=== PATIENT | female | born 1965 | race Caucasian/White ===

== ENCOUNTER 2020-10-22 14:00 | Observation (INO) ==
[2020-10-22] MEDS ORDERED: ACETAMINOPHEN 1000 MG/100 ML IV IV STA (15:30)
[2020-10-22] MEDS ORDERED: KETOROLAC TROMETHAMINE 15 MG/ML VIAL IV STA (15:30)
[2020-10-22] MEDS ORDERED: ONDANSETRON INJ 2 MG/ML 2 ML VIAL IV STA (15:30)
[2020-10-22] MEDS ORDERED: SODIUM CHLORIDE 0.9% 1000ML 1,000 ML IV STA (15:30)
--- NOTE | 2020-10-22 15:34 | Emergency Department Note ---
Impression & Plan Diffuse abdominal pain, Colitis, Leukocytosis, Diarrhea ED Provider Note NAME: CARLI HUDSON AGE: 55 SEX: F : 1965 ARRIVES VIA: Walk-In INFORMANT: [Patient] ED PROVIDER(S): [Rahul Silva MD] CHIEF COMPLAINT: Dehydration HISTORY OF PRESENT ILLNESS: The patient is a 55-year-old female who presents to the ER with 5 days of symptoms. She has had some abdominal cramping, some abdominal tightness that has been rated as moderate in severity. She had some diarrhea and nausea. She has had dry heaves but no vomiting. The patient admits to some slight blood in her stool but states, this is common because she has ulcerative colitis. There has been no black stool. Patient was tested twice this past week for Covid, she was negative. The patient did see urgent care and was given Zofran. Her symptoms are continuing although the Zofran did help the nausea a bit. She presents for evaluation. No respiratory symptoms, no shortness of breath or cough. She has had no urinary complaints. No bad food eaten, no sick contacts. REVIEW OF SYSTEMS: See HPI for pertinent positives and negatives. A total of ten systems were reviewed and were otherwise negative. PMHx/PSHx: See Below SOCIAL HISTORY: See Below. PHYSICAL EXAM: GENERAL: Patient is in no acute distress. HEENT: No acute trauma, normocephalic atraumatic, mucous membranes moist, no nasal congestion, no scleral icterus. NECK: No stridor, no adenopathy, no meningismus, trachea is midline. LUNGS: Clear to auscultation bilaterally, no wheeze, no rhonchi, breath sounds equal. HEART: 2/6 systolic murmur heard best at the right sternal border. Regular rate and rhythm. ABDOMEN: Soft, mildly diffusely tender, bowel sounds positive, no hernias, no peritonitis. EXTREMITIES: No cyanosis or edema, full range of motion of all the joints without pain or difficulty, no signs for acute trauma. NEUROLOGIC: Oriented x 3, no acute motor or sensory deficits, no focal weakness. SKIN: No rash, no jaundice, no diaphoresis. DIFFERENTIAL DIAGNOSIS: Appendicitis, ovarian cyst, diverticulitis, colitis, COVID-19, UTI, obstruction, mesenteric ischemia, aortic pathology, inflammatory bowel disease, renal colic, PUD, pancreatitis, biliary pathology, hernia, volvulus, constipation, as well as other pathologies. EMERGENCY DEPARTMENT COURSE/PROCEDURES: MEDICAL DECISION MAKING: There is a moderate leukocytosis which would be consistent with infection or possibly her pain. There is a normal hemoglobin. Platelet count slightly elevated. Renal panel testing shows a low potassium and low sodium. No kidney failure. No concerning liver enzyme elevation. No evidence for pancreatitis. Urinalysis shows possible infection. C. difficile testing was negative. Stool cultures are pending. Covid testing returned negative. Abdominal and pelvis CT shows a diffuse colitis. Chest film does not show pneumonia or free air. The patient presents with a low-grade fever, diffuse abdominal pain. She has a known history of ulcerative colitis. She received IV saline for hydration. She was given IV potassium, IV Zofran, IV Solu-Medrol and IV Toradol. She received IV Tylenol. Patient does seem more comfortable. I discussed her case with GI. H ospitalization is warranted. Since the stool C. difficile test was negative, steroids were indicated. I spoke with the patient, I talked with the block and case maker. The on-call hospitalist was consulted. The reason for the colitis is unclear. Foodborne or viral illness is certainly a consideration, we await the stool culture results. Past Med/Surg History Medical History Ulcerative colitis Social History Smoking Status: Never smoker Feels Safe at Home: Yes Allergies Allergies Allergy/AdvReac Type Severity Reaction Status Date / Time animal dander Allergy Intermediate SOB WHEEZY Unverified 10/22/20 16:25 Home Meds Home Medications Medication Instructions Recorded Confirmed ondansetron 4 mg disintegrating 4 mg PO Q8H PRN 10/22/20 10/22/20 tablet Results & Data (ED) Vital Signs Vital Signs - 24 hr 10/22/20 14:08 10/22/20 16:01 10/22/20 17:32 Temperature 37.8 C H Temperature Source Temporal Artery Scan Pulse Rate 106 H 78 Pulse Rate [Finger] 86 Pulse Rate from SpO2 Sensor 78 Pulse Rhythm [Finger] Regular Pulse Strength [Finger] Normal Respiratory Rate 18 18 18 Respiratory Effort / Characteristics Spontaneous Respiratory Depth Normal Respiratory Pattern Regular Blood Pressure 109/68 99/61 L Blood Pressure [Right Arm] 104/62 Blood Pressure Mean 81 73 Blood Pressure Mean [Right Arm] 76 Blood Pressure Position [Right Arm] Semi-fowlers Pulse Oximetry 94 97 95 Oxygen Delivery Method Room Air Room Air Sepsis Recent Fever Within 48 Hours Yes Sepsis New/Unexplained Change in Mental Status N/A Sepsis Action Taken by Nursing No Action Required 10/22/20 18:00 10/22/20 19:05 10/22/20 20:00 Temperature 37.2 C Temperature Source Oral Pulse Rate 80 Pulse Rate [Finger] 88 Pulse Rate from SpO2 Sensor 80 Pulse Rhythm [Finger] Regular Pulse Strength [Finger] Normal Respiratory Rate 16 19 Respiratory Effort / Characteristics Spontaneous Non-Labored Spontaneous Respiratory Depth Normal Normal Respiratory Pattern Regular Blood Pressure 103/67 Blood Pressure [Right Arm] 99/61 L Blood Pressure Mean 79 Blood Pressure Mean [Right Arm] 73 Blood Pressure Position [Right Arm] Semi-fowlers Pulse Oximetry 99 99 Oxygen Delivery Method Room Air Sepsis Recent Fever Within 48 Hours Sepsis New/Unexplained Change in Mental Status Sepsis Action Taken by Nursing 10/22/20 21:17 Temperature Temperature Source Pulse Rate 90 Pulse Rate [Finger] Pulse Rate from SpO2 Sensor Pulse Rhythm [Finger] Pulse Strength [Finger] Respiratory Rate 17 Respiratory Effort / Characteristics Respiratory Depth Respiratory Pattern Blood Pressure 101/57 L Blood Pressure [Right Arm] Blood Pressure Mean 71 Blood Pressure Mean [Right Arm] Blood Pressure Position [Right Arm] Pulse Oximetry Oxygen Delivery Method Sepsis Recent Fever Within 48 Hours Sepsis New/Unexplained Change in Mental Status Sepsis Action Taken by Detention Medications Current Medication List: was personally reviewed by me Laboratory Data Attestation: I reviewed the patient's lab results. Result diagrams: 10/22/20 15:42 10/22/20 15:42 Lab Results 10/22/20 10/22/20 10/22/20 Range/Units 15:42 15:42 16:12 WBC 14.69 H (4.8-10.8) K/uL RBC 4.08 L (4.2-5.4) M/uL Hgb 12.4 (12.0-16.0) g/dL Hct 37.2 (37-47) % MCV 91.2 (80-100) fL MCH 30.4 (25-34) pg MCHC 33.3 (32-36) g/dL RDW Std Deviation 43.3 (36.4-46.3) fL RDW Coeff of Young 12.9 (11.5-14.5) % Plt Count 406 H (130-400) K/uL MPV 9.4 (7.4-10.4) fL Immature Gran % (Auto) 0.7 % Neut % (Auto) 73.7 % Lymph % (Auto) 9.5 % Perry % (Auto) 14.5 % Eos % (Auto) 1.4 % Baso % (Auto) 0.2 % Neut # (Auto) 10.81 H (1.4-6.5) K/uL Lymph # (Auto) 1.40 (1.2-3.4) K/uL Perry # (Auto) 2.13 H (0.11-0.59) K/uL Eos # (Auto) 0.21 (0-0.5) K/uL Baso # (Auto) 0.03 (0-0.2) K/uL Immature Gran # (Auto) 0.11 H (0.00-0.02) K/uL Sodium 131 L (136-145) mmol/L Potassium 3.3 L (3.5-5.1) mmol/L Chloride 97 L (98-107) mmol/L Carbon Dioxide 29 (21-32) mmol/L Anion Gap 5.0 (3-11) BUN 6 L (7-18) mg/dl Creatinine 0.83 (0.6-1.2) mg/dl Est Cr Clr Drug Dosing 65.1 ml/min Est GFR ( Amer) 92.7 ml/min Est GFR (Non-Af Amer) 79.9 ml/min BUN/Creatinine Ratio 7.3 L (10-20) Glucose 124 H (70-99) mg/dl Calcium 8.6 (8.5-10.1) mg/dl Total Bilirubin 0.6 (0.2-1) mg/dl AST 10 L (15-37) U/L ALT 13 (12-78) U/L Alkaline Phosphatase 103 (45-117) U/L Total Protein 7.1 (6.4-8.2) gm/dl Albumin 2.6 L (3.4-5.0) gm/dl Globulin 4.5 H (2.5-4.0) gm/dl Albumin/Globulin Ratio 0.6 L (0.9-2) Lipase 261 (73-393) U/L Urine Color Urine Appearance (Clear) Urine pH (4.5-7.5) Ur Specific Heidrick (1.000-1.030) Urine Protein (Negative) Urine Glucose (UA) (Negative) Urine Ketones (Negative) Urine Blood (Negative) Urine Nitrite (Negative) Urine Bilirubin (Negative) Urine Urobilinogen (Negative) Ur Leukocyte Esterase (Negative) Urine WBC (Auto) (0-5) /hpf Urine RBC (Auto) (0-4) /hpf U Hyaline Cast (Auto) U Epithel Cells (Auto) (0-5) /lpf Urine Bacteria (Auto) (Negative) Stl C. diff Tox B Gene (Neg) COVID-19 Eval Order Covid19 at [facility] SARS-CoV-2 (PCR) (Negative) 10/22/20 10/22/20 10/22/20 Range/Units 16:12 19:02 19:02 WBC (4.8-10.8) K/uL RBC (4.2-5.4) M/uL Hgb (12.0-16.0) g/dL Hct (37-47) % MCV (80-100) fL MCH (25-34) pg MCHC (32-36) g/dL RDW Std Deviation (36.4-46.3) fL RDW Coeff of Young (11.5-14.5) % Plt Count (130-400) K/uL MPV (7.4-10.4) fL Immature Gran % (Auto) % Neut % (Auto) % Lymph % (Auto) % Perry % (Auto) % Eos % (Auto) % Baso % (Auto) % Neut # (Auto) (1.4-6.5) K/uL Lymph # (Auto) (1.2-3.4) K/uL Perry # (Auto) (0.11-0.59) K/uL Eos # (Auto) (0-0.5) K/uL Baso # (Auto) (0-0.2) K/uL Immature Gran # (Auto) (0.00-0.02) K/uL Sodium (136-145) mmol/L Potassium (3.5-5.1) mmol/L Chloride (98-107) mmol/L Carbon Dioxide (21-32) mmol/L Anion Gap (3-11) BUN (7-18) mg/dl Creatinine (0.6-1.2) mg/dl Est Cr Clr Drug Dosing ml/min Est GFR ( Amer) ml/min Est GFR (Non-Af Amer) ml/min BUN/Creatinine Ratio (10-20) Glucose (70-99) mg/dl Calcium (8.5-10.1) mg/dl Total Bilirubin (0.2-1) mg/dl AST (15-37) U/L ALT (12-78) U/L Alkaline Phosphatase (45-117) U/L Total Protein (6.4-8.2) gm/dl Albumin (3.4-5.0) gm/dl Globulin (2.5-4.0) gm/dl Albumin/Globulin Ratio (0.9-2) Lipase (73-393) U/L Urine Color Yellow Urine Appearance Clear (Clear) Urine pH 6.5 (4.5-7.5) Ur Specific Heidrick 1.045 H (1.000-1.030) Urine Protein Negative (Negative) Urine Glucose (UA) Negative (Negative) Urine Ketones 1+ H (Negative) Urine Blood Negative (Negative) Urine Nitrite Negative (Negative) Urine Bilirubin Negative (Negative) Urine Urobilinogen Negative (Negative) Ur Leukocyte Esterase 1+ H (Negative) Urine WBC (Auto) >30 H (0-5) /hpf Urine RBC (Auto) 0-4 (0-4) /hpf U Hyaline Cast (Auto) Not Reportable U Epithel Cells (Auto) 10-20 H (0-5) /lpf Urine Bacteria (Auto) Negative (Negative) Stl C. diff Tox B Gene Negative Cdiff Gene (Neg) COVID-19 Eval Order SARS-CoV-2 (PCR) NEGATIVE (Negative) Administered Medications Discontinued Medications Acetaminophen (Acetaminophen 1000 Mg/100 Ml Iv) 1,000 mg IV NOW STA Stop: 10/22/20 15:31 Last Admin: 10/22/20 16:00 Dose: 1,000 mg Documented by: [id number] Sodium Chloride (Nss 1000ml) 1,000 mls @ 999 mls/hr IV .Q1H1M STA Stop: 10/22/20 16:30 Last Infusion: 10/22/20 17:27 Dose: 0 mls/hr Documented by: [id number] Admin: 10/22/20 15:50 Dose: 999 mls/hr Documented by: [id number] Potassium Chloride (K Eriberto / Wtr) 10 meq in 100 mls @ 100 mls/hr IV ONE ONE Stop: 10/22/20 17:19 Last Infusion: 10/22/20 19:03 Dose: 0 mls/hr Documented by: [id number] Admin: 10/22/20 17:26 Dose: 100 mls/hr Documented by: [id number] Sodium Chloride (Nss 1000ml) 500 mls @ 999 mls/hr IV .Q31M ONE Stop: 10/22/20 16:50 Last Infusion: 10/22/20 19:04 Dose: 0 mls/hr Documented by: [id number] Admin: 10/22/20 17:24 Dose: 999 mls/hr Documented by: [id number] Potassium Chloride (K Eriberto / Wtr) 10 meq in 100 mls @ 100 mls/hr IV Q1H STA Stop: 10/22/20 21:28 Last Admin: 10/22/20 21:11 Dose: 100 mls/hr Documented by: [id number] Ioversol (Optiray 320 100ml) 94 ml IV ONCE ONE Stop: 10/22/20 16:20 Last Admin: 10/22/20 16:19 Dose: 94 ml Documented by: [id number] Ketorolac Tromethamine (Ketorolac Tromethamine 15 Mg/Ml Vial) 15 mg IV NOW STA Stop: 10/22/20 15:31 Last Admin: 10/22/20 15:55 Dose: 15 mg Documented by: [id number] Methylprednisolone (Methylprednisolone 125 Mg/2 Ml Vial) 60 mg IV NOW STA Stop: 10/22/20 20:03 Last Admin: 10/22/20 20:18 Dose: 60 mg Documented by: [id number] Ondansetron HCl (Ondansetron Inj 2 Mg/Ml 2 Ml Vial) 4 mg IV NOW STA Stop: 10/22/20 15:31 Last Admin: 10/22/20 15:52 Dose: 4 mg Documented by: [id number] Potassium Chloride (Potassium Chloride Crtab 20 Meq Tabcr) 20 meq PO NOW STA Stop: 10/22/20 20:30 Last Admin: 10/22/20 21:11 Dose: 20 meq Documented by: [id number] Imaging Data Radiologist's Impression: Abdomen/Pelvis CT 10/22/20 15:30 CT OF THE ABDOMEN AND PELVIS WITH CONTRAST CLINICAL HISTORY: Abdominal pain and fever. History of colitis. COMPARISON STUDY: None. TECHNIQUE: Following IV administration of 94 mL of Optiray, axial images of the abdomen and pelvis were obtained from the lung bases to the proximal femurs. Images were reviewed in the axial, sagittal, and coronal planes. IV contrast was administered without complication. Automated exposure control was utilized for the study. A dose lowering technique was utilized adhering to the principles of ALARA. CT DOSE: 272.30 mGy.cm FINDINGS: Lung bases are unremarkable. No pneumatosis, free air or portal venous gas is present. The liver, spleen, adrenal glands, kidneys and pancreas are unremarkable. There is no biliary or pancreatic ductal dilatation. There is no hydronephrosis. There is no evidence for a bowel obstruction. Note is made of moderate wall thickening with hyperemia of the entire colon. There is mild dilatation of the transverse colon, measuring approximately 5 cm in caliber. There is pericolonic infiltration and trace ascites. No free air or abscess is present. There are several prominent ileocolic lymph nodes. Differentiation bet ween lymph nodes and decompressed small bowel loops is difficult on this exam. No acute fracture or suspicious lesion is identified within the visualized skeletal structures. Major vasculature is patent. IMPRESSION: 1. Moderate wall thickening with hyperemia of the entire colon. The findings represent a moderate to severe pancolitis and favor active ulcerative colitis. An infectious colitis could appear similar. Mild dilatation of the transverse colon without CT evidence for toxic megacolon. Close clinical follow-up is recommended. If progressive abdominal pain, short-term follow-up CT is recommended. 2. A few prominent ileocolic lymph nodes. These may be reactive. However, if not recently performed on a nonemergent colonoscopy once acute symptoms resolve is recommended. 3. No bowel obstruction. ACT 112: Negative or not required by law. Electronically signed by: Mekhi Peterson M.D. 10/22/2020 5:31 PM Chest X-Ray 10/22/20 15:30 XR chest 1V portable CLINICAL HISTORY: Abdominal pain. COMPARISON STUDY: No previous studies for comparison. FINDINGS: Lung volumes are normal. Lungs are clear. There is no pneumothorax or pleural effusion. Cardiac size is normal. Mediastinal contours are normal. There is no evidence for pulmonary edema. IMPRESSION: No acute cardiopulmonary findings. ACT 112: Negative or not required by law. Electronically signed by: Mekhi Peterson M.D. 10/22/2020 3:56 PM Discharge Plan Visit Data Chief Complaint: Dehydration Stated Complaint: DIARRHEA,NAUSEA,DEHYDRATION ED Provider: Rahul Silva Discharge Problem: Diffuse abdominal pain, Colitis, Leukocytosis, Diarrhea Patient Disposition: Admitted As Inpatient Condition: Fair Forms Stand Alone Forms: [facility] Prescriptions Prescriptions: No Action ondansetron 4 mg tablet,disintegrating 4 mg PO Q8H PRN (Reason: Nausea) RF: 0 Referrals Referrals: Deyanira Dover MD [Primary Care Provider] -
[2020-10-22 15:51] LABS: Basophils # (auto) 0.03 K/uL (0-0.2); Basophils % (auto) 0.2 %; Eosinophils # (auto) 0.21 K/uL (0-0.5); Eosinophils % (auto) 1.4 %; Hematocrit (blood only) 37.2 % (37-47); Hemoglobin 12.4 g/dL (12.0-16.0); Immature Granulocytes # (auto) 0.11 K/uL (0.00-0.02); Immature Granulocytes % (auto) 0.7 %; Lymphocytes % (auto) 9.5 %; Mean Corpuscular Hemoglobin 30.4 pg (25-34); Mean Corpuscular Hgb Conc 33.3 g/dL (32-36); Mean Corpuscular Volume 91.2 fL (80-100); Mean Platelet Volume 9.4 fL (7.4-10.4); Monocytes # (auto) 2.13 K/uL (0.11-0.59); Monocytes % (auto) 14.5 %; Neutrophils # (auto) 10.81 K/uL (1.4-6.5); Neutrophils % (auto) 73.7 %; Platelet Count 406 K/uL (130-400); RDW Coefficient of Variation 12.9 % (11.5-14.5); RDW Standard Deviation 43.3 fL (36.4-46.3); Red Blood Count 4.08 M/uL (4.2-5.4); White Blood Count 14.69 K/uL (4.8-10.8)
--- NOTE | 2020-10-22 15:58 | XRay Report ---
XR chest 1V portable CLINICAL HISTORY: Abdominal pain. COMPARISON STUDY: No previous studies for comparison. FINDINGS: Lung volumes are normal. Lungs are clear. There is no pneumothorax or pleural effusion. Car diac size is normal. Mediastinal contours are normal. There is no evidence for pulmonary edema. IMPRESSION: No acute cardiopulmonary findings. ACT 112: Negative or not required by law. Electronically signed by: Mekhi Peterson M.D. 10/22/2020 3:56 PM
[2020-10-22 16:08] LABS: Albumin Level 2.6 gm/dl (3.4-5.0); BUN Creatinine Ratio 7.3 (10-20); Calcium 8.6 mg/dl (8.5-10.1); Creatinine Clr Calc Pharmacy 65.1 ml/min; Est GFR (African American) 92.7 ml/min; Est GFR (Non-African American) 79.9 ml/min; Potassium 3.3 mmol/L (3.5-5.1)
[2020-10-22 16:11] LABS: Albumin Globulin Ratio 0.6 (0.9-2); Bilirubin,Total 0.6 mg/dl (0.2-1); Globulin 4.5 gm/dl (2.5-4.0); Total Protein 7.1 gm/dl (6.4-8.2)
[2020-10-22] MEDS ORDERED: OPTIRAY 320 100ml IV ONE (16:19)
[2020-10-22] MEDS ORDERED: SODIUM CHLORIDE 0.9% 1000ML 500 ML IV ONE (16:20)
[2020-10-22] MEDS ORDERED: POTASSIUM CHLORIDE / WTR 10 MEQ/100 ML PLCT IV ONE (16:20)
--- NOTE | 2020-10-22 17:32 | CT Scan Report ---
CT OF THE ABDOMEN AND PELVIS WITH CONTRAST CLINICAL HISTORY: Abdominal pain and fever. History of colitis. COMPARISON STUDY: None. TECHNIQUE: Following IV administration of 94 mL of Optiray, axial images of the abdomen and pelvis we re obtained from the lung bases to the proximal femurs. Images were reviewed in the axial, sagittal, and coronal planes. IV contrast was administered without complication. Automated exposure control wa s utilized for the study. A dose lowering technique was utilized adhering to the principles of ALARA . CT DOSE: 272.30 mGy.cm FINDINGS: Lung bases are unremarkable. No pneumatosis, free air or portal venous gas is present. The liver, spleen, adrenal glands, kidneys and pancreas are unremarkable. There is no biliary or pancreat ic ductal dilatation. There is no hydronephrosis. There is no evidence for a bowel obstruction. Note is made of moderate wall thickening with hyperemia of the entire colon. There is mild dilatation of t he transverse colon, measuring approximately 5 cm in caliber. There is pericolonic infiltration and t race ascites. No free air or abscess is present. There are several prominent ileocolic lymph nodes. D ifferentiation between lymph nodes and decompressed small bowel loops is difficult on this exam. No a cute fracture or suspicious lesion is identified within the visualized skeletal structures. Major vas culature is patent. IMPRESSION: 1. Moderate wall thickening with hyperemia of the entire colon. The findings represent a moderate to severe pancolitis and favor active ulcerative colitis. An infectious colitis could appear similar. Mi ld dilatation of the transverse colon without CT evidence for toxic megacolon. Close clinical follow- up is recommended. If progressive abdominal pain, short-term follow-up CT is recommended. 2. A few prominent ileocolic lymph nodes. These may be reactive. However, if not recently performed o n a nonemergent colonoscopy once acute symptoms resolve is recommended. 3. No bowel obstruction. ACT 112: Negative or not required by law. Electronically signed by: Mekhi Peterson M.D. 10/22/2020 5:31 PM
[2020-10-22 19:20] LABS: Appearance Urine Clear (Clear); Bilirubin Urine Negative (Negative); Blood Urine Negative (Negative); Color Urine Yellow; Glucose Urine UA Negative (Negative); Ketones Urine 1+ (Negative); Leukocyte Esterase Urine 1+ (Negative); Nitrite Urine Negative (Negative); Protein Urine Negative (Negative); Specific Gravity Urine 1.045 (1.000-1.030); Urobilinogen Urine Negative (Negative); pH Urine 6.5 (4.5-7.5)
[2020-10-22 19:43] LABS: WBC Urine Automated >30 /hpf (0-5)
[2020-10-22 19:44] LABS: Bacteria Urine Automated Negative (Negative); RBC Urine Automated 0-4 /hpf (0-4)
[2020-10-22] MEDS ORDERED: methylPREDNISolone 125 MG/2 ML VIAL IV STA (20:02)
[2020-10-22] MEDS ORDERED: POTASSIUM CHLORIDE / WTR 10 MEQ/100 ML PLCT IV STA (20:29)
[2020-10-22] MEDS ORDERED: POTASSIUM CHLORIDE CRTAB 20 MEQ TABCR PO STA (20:29)
--- NOTE | 2020-10-22 21:54 | History and Physical Report ---
DATE OF ADMISSION: 10/22/2020 CHIEF COMPLAINT: Diarrhea and abdominal discomfort. HISTORY OF PRESENT ILLNESS: This is a 55-year-old female with past medical history significant for ulcerative colitis diagnosed 35 years ago. As per patient, initially in the 80s, she took mesalamine, but she has not been taking any medication for a long time and is generally under control. Since last Friday, she is having abdominal cramps, twisting kind of pain and also diarrhea daily few episodes. Once in a while, she has some blood in the stools. She said she never had this kind of pain with her ulcerative colitis in the past and no recent use of any antibiotics. She does not feel like eating anything. She is not eating much and she feels a burning sensation in her esophagus. When she eats any spicy food, feels burning in her esophagus. Currently, feeling somewhat hungry and she wants to have a soup. In the ER, she had a low-grade temperature. Denies any cough. She says she was tested for COVID a couple of times in the recent past and was negative and today also it is negative in the ER. She says she is vaccinated for COVID. Denies any headache. No blurred visions, no double vision, no earache, no runny nose, no sore throat, no difficulty swallowing. No chest pain, no shortness of breath. Not much micturating at home, but currently with fluids, she is micturating fine in the ER. No swelling in the legs, no rash. Currently, resting comfortably and hemodynamically stable. ALLERGIES: ANIMAL DANDER. PAST MEDICAL HISTORY: As mentioned above. PAST SURGICAL HISTORY: Colonoscopy. MEDICATIONS: Currently only taking Zofran as needed. FAMILY HISTORY: Significant for sister had colon cancer; father has hyperlipidemia; mother has hyperlipidemia; father has CABG; sister has endocrine disorder. SOCIAL HISTORY: Single. No smoking. 3-4 glasses of wine per week. No drug use. REVIEW OF SYSTEMS: As per HPI. Rest of the review of systems is negative. PHYSICAL EXAMINATION: GENERAL: The patient is of moderate build, not in acute distress. VITAL SIGNS: Temperature 37.8, pulse 80, respiratory rate 19, blood pressure 103/67, oxygen 99% on room air. HEENT: Pupils equal, round and reactive to light. Oral mucosa moist. NECK: No JVD, no neck masses. CARDIOVASCULAR: S1 and S2 heard. Regular rate and rhythm. No murmur, no gallop. RESPIRATORY SYSTEM: Normal AP diameter. No accessory muscle use. No wheezing, no crackles. ABDOMEN: Soft, bowel sounds present, nontender, no distention. CENTRAL NERVOUS SYSTEM: Cranial nerves II-XII grossly intact, nonfocal. EXTREMITIES: No edema, no erythema. LABORATORY DATA: WBC 14.6, hemoglobin 12.4, hematocrit 37.2, platelets 406. Sodium 131, potassium 3.3, chloride 97, bicarbonate 29, BUN 6, creatinine 0.8, serum glucose 124, calcium 8.6, total bilirubin 0.6, AST 10, ALT 13, alkaline phosphatase 103. Lipase 261. Urinalysis; +1 ketones, +1 leukocyte esterase. SARS-CoV-2 PCR negative. Stool for C. diff negative. IMAGING: Chest x-ray: No acute cardiopulmonary findings. CT of the abdomen and pelvis: Moderate wall thickening with hyperemia of the entire colon. This finding represents a [id number] pancolitis and favors acute ulcerative colitis, infectious colitis could appear similar. Mild dilatation of the transverse colon without CT evidence for toxic megacolon, close clinical followup is recommended. If progressive abdominal pain, a short-term followup CT is recommended. A few prominent lymph nodes, this may be reactive; however, if not recently performed, a nonemergent colonoscopy once acute symptoms resolved is recommended. No bowel obstruction. ASSESSMENT AND PLAN: This is a 55-year-old female with history of ulcerative colitis, comes with ulcerative colitis flare. 1. Ulcerative colitis flare: The patient has ulcerative colitis for the last 35 years. As per patient, initially took mesalamine, but currently not taking any medication, generally it is well controlled. Since last few days, she is having symptoms of abdominal pain, cramps and diarrhea with occasional blood in the stools. Here her imaging studies show pancolitis. Clostridium difficile is negative. Emergency Room talked with gastrointestinal acquisition marketing coordinator and recommended, if Clostridium difficile is negative, to start steroid. First dose of steroid Solu-Medrol 60 mg given in the Emergency Room. We will continue with Solu- Medrol 20 mg IV t.i.d. from tomorrow. Pain control, IV fluids. We will keep n.p.o. after midnight and consult gastrointestinal in the a.m. for further recommendations. 2. Hypokalemia: We will replace. 3. Possible urinary tract infection: We will follow the cultures. If it comes back positive, we will start her on antibiotics. 4. Deep venous thrombosis prophylaxis: Sequential compression devices for now. DISPOSITION: Closely monitor in the medical floor. Level 1 full code. Expect to discharge home and follow up with her family doctor. Job ID: [id number] [facility]
[2020-10-22] MEDS ORDERED: ACETAMINOPHEN 325 MG TAB PO PRN (22:08)
[2020-10-22] MEDS ORDERED: MoRPHine SULFATE 2 MG/ML CARP IV PRN (22:08)
[2020-10-22] MEDS ORDERED: ONDANSETRON INJ 2 MG/ML 2 ML VIAL IV PRN (22:08)
[2020-10-22] MEDS: D5W AND NSS 1,000 ML IV SCH (22:26)
[2020-10-23] MEDS: D5W AND NSS 1,000 ML IV SCH ×3 (05:27→23:56)
[2020-10-23 06:30] LABS: Hematocrit (blood only) 31.7 % (37-47); Hemoglobin 10.5 g/dL (12.0-16.0); Mean Corpuscular Hemoglobin 30.4 pg (25-34); Mean Corpuscular Hgb Conc 33.1 g/dL (32-36); Mean Corpuscular Volume 91.9 fL (80-100); Mean Platelet Volume 9.2 fL (7.4-10.4); Platelet Count 312 K/uL (130-400); RDW Coefficient of Variation 13.1 % (11.5-14.5); RDW Standard Deviation 44.3 fL (36.4-46.3); Red Blood Count 3.45 M/uL (4.2-5.4); White Blood Count 6.32 K/uL (4.8-10.8)
[2020-10-23 06:47] LABS: BUN Creatinine Ratio 7.3 (10-20); Creatinine Clr Calc Pharmacy 89.6 ml/min; Est GFR (African American) 117.9 ml/min; Est GFR (Non-African American) 101.7 ml/min; Magnesium 2.1 mg/dl (1.8-2.4); Potassium 3.7 mmol/L (3.5-5.1)
[2020-10-23 06:53] LABS: Basophils # (auto) 0.01 K/uL (0-0.2); Basophils % (auto) 0.2 %; Dohle Bodies 1+; Immature Granulocytes # (auto) 0.03 K/uL (0.00-0.02); Immature Granulocytes % (auto) 0.5 %; Lymphocytes # (auto) 0.56 K/uL (1.2-3.4); Lymphocytes % (auto) 8.9 %; Monocytes # (auto) 0.47 K/uL (0.11-0.59); Monocytes % (auto) 7.4 %; Neutrophils # (auto) 5.25 K/uL (1.4-6.5)
[2020-10-23] MEDS ORDERED: methylPREDNISolone 20 MG in SYRINGE 0 ML IV SCH (08:00)
--- NOTE | 2020-10-23 08:16 | Gastrointestinal Consultation ---
Date of Consultation October 23, 2020 Assessment & Plan (1) Diffuse abdominal pain: (2) Ulcerative colitis: suspect UC flare, moderate-severe disease appearance on CT scan, with inflamed lymph nodes as well. Currently improving a little bit with steroids. Recs: --IV solumedrol 40 mg [id number], if no significant improvement clinically in 2 days will need a colonoscopy inpatient and possibly need to consider biologic therapy if disease is in fact severe --if responds well to IV steroids in the next day or two, can likely be discharged on 4 week prednisone taper and will need colonoscopy as an outpatient --we did discuss that she will need to be on maintenance therapy going forward and she seems more amenable to it, can discuss those options with her GI as an outpatient --supportive care --clear liquid diet today Thank you for allowing me to participate in the care of this patient History of Present Illness Attending Physician: Elvira Navas MD History of Present Illness 55-year-old female with past medical history significant for ulcerative colitis diagnosed 35 years ago last on therapy in the 80s when she took sulfasalazine. She is here with worsening symptoms including diarrhea 2-3 episodes all liquid daily, and siffuse abdominal pains as well as reflux and decreased appetite. Last colonoscopy 1 year ago with omero loya and was told at the time to go on long-term therapy/maintenance medication for her UC but she decided not to. She says she was not symptomatic then but is having symptoms now.placed on iv solumedrol and is feeling somewhat better so far since being here. cdiff was ruled out already. labs reviewed, cdiff negative. vss. 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 Beliefs That Will Affect Care: None Current Living Situation: Alone Feels Safe at Home: Yes Safety Concerns: Feels Safe At This Time Review of Systems Constitutional: no fever, no chills and no weight loss Eyes: as per Subjective / HPI Ear, Nose, Mouth, Throat: as per Subjective / HPI Respiratory: no dyspnea and no dyspnea on exertion Cardiovascular: no chest pain and no palpitations Gastrointestinal: as per Subjective / HPI Musculoskeletal: no joint pain and no swelling Integumentary: no rash and no lesions Neurologic: no numbness and no paresthesia Psychiatric: no depression and no anxiety Endocrine: no fatigue Hematologic / Lymphatic: no easy bleeding and no easy bruising Physical Exam Constitutional: WD/WN, vitals as above Eyes: EOM intact bilaterally Neck: normal visual inspection Respiratory: normal respiratory effort, lungs clear to auscultation Cardiovascular: RRR, no murmur, no edema Gastrointestinal (Abdomen): Inspection/Auscultation: abdomen normal to inspection; abdomen not distended Percussion/Palpation: + abdomen tender (moderate diffuse, worse in RUQ) and abdomen soft; no hepatosplenomegaly Musculoskeletal: Extremities: no cyanosis Gait: normal gait Skin: no rashes, warm and dry Neurologic: moves all extremities Psychiatric: A+Ox3, euthymic affect Results & Data ([facility]) Vital Signs (Past 12 Hours) Vital Signs Temp Pulse Pulse Resp BP BP Pulse Ox 10/23/20 07:41 36.8 C 68 16 102/66 96 10/22/20 22:10 37.1 C 91 H 16 112/70 96 10/22/20 21:17 90 17 101/57 L PG Care Time/CCT Total # of Minutes Spent Total Time Spent with Patient: Total time spent is greater than 50% in coordination of care (as documented) at patient's floor/unit and/or counseling patient: Coding Level of Care Code 60143 Inpt Consult Level 4 Diagnoses Diffuse abdominal pain R10.84 Ulcerative colitis K51.90
[2020-10-23] MEDS ORDERED: methylPREDNISolone 20 MG in SYRINGE 0 ML IV ONE (10:00)
--- NOTE | 2020-10-23 11:18 | Hospitalist Progress Note ---
Date of Service October 23, 2020 Assessment & Plan (1) Diffuse abdominal pain: (2) Ulcerative colitis: (3) Colitis: (4) Leukocytosis: (5) Diarrhea: Plan: Abdominal CT showed moderate to severe pancolitis Continue IV fluids and pain management Discussed patient with open hearth helper. C. difficile is negative. Recommend to do Solu-Medrol 40 every 12 for now and if improves with 2 steroid taper over the next 4 weeks. Clear liquid diet today Patient will need GI follow-[facility] Admission and Anticipated Discharge Date Admission Date: October 22, 2020 Subjective 55-year-old woman with history of ulcerative colitis diagnosed at 5 years ago but not currently on any medication who presents with abdominal cramps, and diarrhea for the past 5 days. Being managed for possible ulcerative colitis flare. Patient seen and examined this morning. Still reports generalized abdominal pain, occasional nausea. Has had 2 episodes of diarrhea this morning. Denies any vomiting No fevers no chills. Denies chest pain, cough, shortness of breath, Denies any dysuria, frequency, urgency. Review of Systems Review of Systems: Other review of system negative as except as above Physical Exam Constitutional: + well hydrated; no acute distress Eyes: PERRL, conjunctivae normal, anicteric sclerae ENMT: external ear and nose normal, oropharynx normal Respiratory: normal respiratory effort, lungs clear to auscultation Cardiovascular: RRR, no murmur, no edema Gastrointestinal (Abdomen): Inspection/Auscultation: abdomen normal to inspection and normal bowel sounds; abdomen not distended Percussion/Palpation: + abdomen tender and abdomen soft; no guarding and abdomen not rigid Musculoskeletal: no cyanosis or clubbing, extremities motor strength 5/5 Neurologic: PERRL, EOMI, accommodation nl, no face palsy, no dysarthria Psychiatric: A+Ox3, euthymic affect Results & Data Results & Data ([facility]) Vital Signs (Past 12 Hours) Vital Signs Temp Pulse Resp BP Pulse Ox 10/23/20 07:41 36.8 C 68 16 102/66 96 Laboratory Results Abnormal lab results 10/22/20 10/22/20 10/22/20 Range/Units 15:42 15:42 19:02 WBC 14.69 H (4.8-10.8) K/uL RBC 4.08 L (4.2-5.4) M/uL Hgb (12.0-16.0) g/dL Hct (37-47) % Plt Count 406 H (130-400) K/uL Neut # (Auto) 10.81 H (1.4-6.5) K/uL Lymph # (Auto) (1.2-3.4) K/uL [place] # (Auto) 2.13 H (0.11-0.59) K/uL Immature Gran # (Auto) 0.11 H (0.00-0.02) K/uL Sodium 131 L (136-145) mmol/L Potassium 3.3 L (3.5-5.1) mmol/L Chloride 97 L (98-107) mmol/L BUN 6 L (7-18) mg/dl BUN/Creatinine Ratio 7.3 L (10-20) Glucose 124 H (70-99) mg/dl Calcium (8.5-10.1) mg/dl AST 10 L (15-37) U/L Albumin 2.6 L (3.4-5.0) gm/dl Globulin 4.5 H (2.5-4.0) gm/dl Albumin/Globulin Ratio 0.6 L (0.9-2) Ur Specific [place] 1.045 H (1.000-1.030) Urine Ketones 1+ H (Negative) Ur Leukocyte Esterase 1+ H (Negative) Urine WBC (Auto) >30 H (0-5) /hpf U Epithel Cells (Auto) 10-20 H (0-5) /lpf 10/23/20 10/23/20 Range/Units 06:15 06:15 WBC (4.8-10.8) K/uL RBC 3.45 L (4.2-5.4) M/uL Hgb 10.5 L (12.0-16.0) g/dL Hct 31.7 L (37-47) % Plt Count (130-400) K/uL Neut # (Auto) (1.4-6.5) K/uL Lymph # (Auto) 0.56 L (1.2-3.4) K/uL [place] # (Auto) (0.11-0.59) K/uL Immature Gran # (Auto) 0.03 H (0.00-0.02) K/uL Sodium (136-145) mmol/L Potassium (3.5-5.1) mmol/L Chloride 108 H (98-107) mmol/L BUN 5 L (7-18) mg/dl BUN/Creatinine Ratio 7.3 L (10-20) Glucose 193 H (70-99) mg/dl Calcium 8.0 L (8.5-10.1) mg/dl AST (15-37) U/L Albumin (3.4-5.0) gm/dl Globulin (2.5-4.0) gm/dl Albumin/Globulin Ratio (0.9-2) Ur Specific [place] (1.000-1.030) Urine Ketones (Negative) Ur Leukocyte Esterase (Negative) Urine WBC (Auto) (0-5) /hpf U Epithel Cells (Auto) (0-5) /lpf (1) Leukocytosis Leukocytosis type: unspecified Qualified Code(s): D72.829 - Elevated white blood cell count, unspecified (2) Diarrhea Diarrhea type: unspecified type Qualified Code(s): R19.7 - Diarrhea, unspecified
[2020-10-23] MEDS: methylPREDNISolone 40 MG in SYRINGE 0 ML IV SCH (21:54)
[2020-10-24 06:52] LABS: Hematocrit (blood only) 30.7 % (37-47); Hemoglobin 9.9 g/dL (12.0-16.0); Mean Corpuscular Hemoglobin 29.5 pg (25-34); Mean Corpuscular Hgb Conc 32.2 g/dL (32-36); Mean Corpuscular Volume 91.4 fL (80-100); Mean Platelet Volume 9.7 fL (7.4-10.4); Platelet Count 327 K/uL (130-400); RDW Coefficient of Variation 13.4 % (11.5-14.5); RDW Standard Deviation 44.5 fL (36.4-46.3); Red Blood Count 3.36 M/uL (4.2-5.4); White Blood Count 7.27 K/uL (4.8-10.8)
[2020-10-24 07:31] LABS: BUN Creatinine Ratio 5.8 (10-20); Creatinine Clr Calc Pharmacy 86.8 ml/min; Est GFR (African American) 116.7 ml/min; Est GFR (Non-African American) 100.7 ml/min; Phosphorus 2.3 mg/dl (2.5-4.9); Potassium 3.7 mmol/L (3.5-5.1)
[2020-10-24] MEDS: methylPREDNISolone 40 MG in SYRINGE 0 ML IV SCH ×2 (08:56→21:21)
[2020-10-24] MEDS: ENOXAPARIN INJ 40 MG/0.4 ML SYR SQ SCH (09:56)
[2020-10-24] MEDS ORDERED: POT PHOSPHATE MONOBASIC W/ SOD TAB PO ONE (10:42)
--- NOTE | 2020-10-24 13:25 | Gastroenterology Progress Note ---
Date of Service October 24, 2020 Assessment & Plan (1) Ulcerative colitis: Plan: Add po mesalamine, recommend Apriso if on formulary. Cont IV methylprednisone Soft, bland, low fiber diet. OP EGD, colonoscopy in approx 1month. OP f/u in GI clinic as well. Recommend Humira but pt prefers minimal medication. (2) Nausea: Plan: Patient had a lot of upper abdomen discomfort some nausea and aversion to foods for a week or so prior to hospitalization and suspects upper GI issues as well. - We will add EGD at the time of outpatient colonoscopy in approximately 1 month Admission and Anticipated Discharge Date Admission Date: October 22, 2020 Supervising Physician Co-Signing Physician Notes I saw and evalauted the patient with zeke. She notes feeling much iproved today on IV steroid course. We did discuss long-term options as this is the 2nd course of steroid therapy this year for the patient, would suggest she consider use of a biologic such as Humira (she wishes to hold on this for the preesent time) Recomendations OP EGD / colon for re-staging of UC (2 to 4 weeks) Steroid taper as written by Zeke Begin Lialda 4 tabs 1 time daily (4.8 gm) Subjective 55-year-old woman with history of ulcerative colitis diagnosed 5 years ago but not currently on any maintenance medication who was admitted on 10/24 for abdominal cramps, and diarrhea that began last week. On arrival CTAP with IV contrast with pancolitis. This morning improved, no BMs yet today, tolerated a full liquid diet well. Review of Systems Review of Systems: ROS: Gen: weakness resolved since admission. Denies fevers, weight loss Eyes: No eye redness, or pain, no recent vision changes Resp: No SOB, no cough Cardio: No palpitations/irregular beats, no chest pain GI: as per HPI : Denies pain on urination Skin: No jaundice, itching or new rashes Physical Exam Constitutional: WD/WN, vitals as above Eyes: PERRL, conjunctivae normal, anicteric sclerae ENMT: external ear and nose normal, oropharynx normal Neck: trachea midline, no thyromegaly Respiratory: normal respiratory effort, lungs clear to auscultation Cardiovascular: RRR, no murmur, no edema Gastrointestinal (Abdomen): Inspection/Auscultation: abdomen normal to inspection and + hyperactive bowel sounds; abdomen not distended mild diffuse tenderness Musculoskeletal: no cyanosis or clubbing, extremities motor strength 5/5 Skin: no rashes, warm and dry Neurologic: PERRL, EOMI, accommodation nl, no face palsy, no dysarthria Psychiatric: A+Ox3, euthymic affect Lymphatic: no cervical or axillary lymphadenopathy Results & Data ([facility]) Vital Signs (Past 12 Hours) Vital Signs Temp Pulse Resp BP Pulse Ox 10/24/20 07:45 36.8 C 61 16 115/71 97 Laboratory Results WBC 7.2, Hb 9.9, HCT 30.7, PLT S3 27, NA 139, K3.7, CL 109, CO2 25, BUN 4, CR 0.65, glucose 162 Diagnostic Findings CTAP w IV contrast on 10/22/20: 1. Moderate wall thickening with hyperemia of the entire colon. The findings represent a moderate to severe pancolitis and favor active ulcerative colitis. An infectious colitis could appear similar. Mild dilatation of the transverse colon without CT evidence for toxic megacolon. Close clinical follow-up is recommended. If progressive abdominal pain, short-term follow-up CT is recomme nded. 2. A few prominent ileocolic lymph nodes. These may be reactive. However, if not recently performed on a nonemergent colonoscopy once acute symptoms resolve is recommended. 3. No bowel obstruction.
--- NOTE | 2020-10-24 13:43 | Hospitalist Progress Note ---
Date of Service October 24, 2020 Assessment & Plan (1) Diffuse abdominal pain: (2) Ulcerative colitis: (3) Colitis: (4) Leukocytosis: (5) Diarrhea: Plan: Abdominal CT showed moderate to severe pancolitis C. difficile is negative. Currently on iv solumedrol Tolerating clears well. Will advance diet today GI had recommended 4 week prednisone taper on discharge. Patient needs GI follow up on dc for definitive therapies and outpatient c-scope Lovenox subcu for DVT prophylaxis Admission and Anticipated Discharge Date Admission Date: October 22, 2020 Subjective 55-year-old woman with history of ulcerative colitis diagnosed at 5 years ago but not currently on any medication who presents with abdominal cramps, and diarrhea for the past 5 days. Being managed for possible ulcerative colitis flare. Patient seen and examined this morning. Reports abd pain is resolved at this time Diarrhea is improving. No nausea or vomiting Review of Systems Review of Systems: Other review of system negative as except as above Physical Exam Constitutional: + well hydrated; no acute distress Eyes: PERRL, conjunctivae normal, anicteric sclerae ENMT: external ear and nose normal, oropharynx normal Respiratory: normal respiratory effort, lungs clear to auscultation Cardiovascular: RRR, no murmur, no edema Gastrointestinal (Abdomen): normal bowel sounds, soft, nontender, no hepatosplenomegaly Musculoskeletal: no cyanosis or clubbing, extremities motor strength 5/5 Neurologic: PERRL, EOMI, accommodation nl, no face palsy, no dysarthria Psychiatric: A+Ox3, euthymic affect Results & Data Results & Data ([facility]) Vital Signs (Past 12 Hours) Vital Signs Temp Pulse Resp BP Pulse Ox 10/24/20 07:45 36.8 C 61 16 115/71 97 Laboratory Results Abnormal lab results 10/24/20 10/24/20 Range/Units 06:20 06:20 RBC 3.36 L (4.2-5.4) M/uL Hgb 9.9 L (12.0-16.0) g/dL Hct 30.7 L (37-47) % Chloride 109 H (98-107) mmol/L BUN 4 L (7-18) mg/dl BUN/Creatinine Ratio 5.8 L (10-20) Glucose 162 H (70-99) mg/dl Calcium 8.0 L (8.5-10.1) mg/dl Phosphorus 2.3 L (2.5-4.9) mg/dl (1) Leukocytosis Leukocytosis type: unspecified Qualified Code(s): D72.829 - Elevated white blood cell count, unspecified (2) Diarrhea Diarrhea type: unspecified type Qualified Code(s): R19.7 - Diarrhea, unspecified
[2020-10-24] MEDS: MESALAMINE 800 MG TABCR PO SCH (21:21)
[2020-10-25 08:12] LABS: BUN Creatinine Ratio 11.3 (10-20); Calcium 8.5 mg/dl (8.5-10.1); Creatinine Clr Calc Pharmacy 89.6 ml/min; Est GFR (African American) 117.9 ml/min; Est GFR (Non-African American) 101.7 ml/min; Magnesium 2.6 mg/dl (1.8-2.4); Potassium 3.8 mmol/L (3.5-5.1)
[2020-10-25 08:16] LABS: Phosphorus 3.6 mg/dl (2.5-4.9)
[2020-10-25] MEDS: ENOXAPARIN INJ 40 MG/0.4 ML SYR SQ SCH (08:36)
[2020-10-25] MEDS: MESALAMINE 800 MG TABCR PO SCH (08:37)
[2020-10-25] MEDS: methylPREDNISolone 40 MG in SYRINGE 0 ML IV SCH (08:37)
--- NOTE | 2020-10-25 09:34 | Gastroenterology Progress Note ---
Date of Service October 25, 2020 Assessment & Plan (1) Ulcerative colitis: Plan: Palpitations most likely a side effect of the prednisone. On discharge: Prednisone 40mg po daily Lialda 1.2gm 4 tabs/day Soft, bland, low fiber diet. OP colonoscopy in approx 1month (upper abd symptoms have resolved so likely secondary to UC flare, will defer EGD). OP f/u in GI clinic as well. Our office will call to arrange. No GI contraindication to DC. GI will sign off. Please notify us of new/worsening GI issues. (2) Nausea: Plan: Because resolved will defer EGD. Admission and Anticipated Discharge Date Admission Date: October 22, 2020 Supervising Physician Co-Signing Physician Notes I saw and evaluated the patient. She notes that itching is improved as compared to yesterday. Would recommend a steroid taper as written by Ms. Alanis above in addition to use of Lialda 4.8 g/day. The patient will undergo a repeat upper endoscopy and colonoscopy and an appointment to be scheduled within the next few weeks. We would recommend that she consider long-term use of a biologic as had been suggested by Dr. Velasquez in the past. Subjective 55-year-old woman admitted on 09/22 with a UC flare. Responding well to prednisone. Tells me she feels much better this morning. Tolerating a low fiber diet. BMs now less frequent and beginning to have some formed soft pieces in the liquid BM. Minimal cramping discomfort/no pain with defecation. Started generic mesalamine last evening. Episode of palpitations, anxiety and elevated BP this morning. Review of Systems Review of Systems: ROS: Gen: Denies weakness, fevers, weight loss Eyes: No eye redness, or pain, no recent vision changes Resp: No SOB, no cough Cardio: No palpitations/irregular beats, no chest pain GI: As per HPI, otherwise negative : Denies pain on urination Skin: No jaundice, itching or new rashes Physical Exam Constitutional: WD/WN, vitals as above Eyes: PERRL, conjunctivae normal, anicteric sclerae ENMT: external ear and nose normal, oropharynx normal Neck: trachea midline, no thyromegaly Respiratory: normal respiratory effort, lungs clear to auscultation Cardiovascular: RRR, no murmur, no edema Gastrointestinal (Abdomen): Inspection/Auscultation: abdomen normal to inspection and + hyperactive bowel sounds; abdomen not distended Musculoskeletal: no cyanosis or clubbing, extremities motor strength 5/5 Skin: no rashes, warm and dry Neurologic: PERRL, EOMI, accommodation nl, no face palsy, no dysarthria Psychiatric: A+Ox3, euthymic affect Lymphatic: no cervical or axillary lymphadenopathy Results & Data ([facility]) Vital Signs (Past 12 Hours) Vital Signs Temp Pulse Resp BP BP Pulse Ox 10/25/20 09:14 72 124/70 97 10/25/20 08:31 36.2 C L 71 16 143/80 H 94 10/25/20 08:27 36.6 C 61 18 132/76 97 10/24/20 22:59 36.8 C 61 16 132/72 97 Laboratory Results WBC 3.3, Hb 9.9, Hct 30.7, Plts 327, Na 139, K 3.8, Cl 104, CO2 28, BUn 7, Cr 0.63, glucose 128. Diagnostic Findings CTAP w IV contrast 10/22/20: 1. Moderate wall thickening with hyperemia of the entire colon. The findings represent a moderate to severe pancolitis and favor active ulcerative colitis. An infectious colitis could appear similar. Mild dilatation of the transverse colon without CT evidence for toxic megacolon. Close clinical follow-up is recommended. If progressive abdominal pain, short-term follow-up CT is recommended. 2. A few prominent ileocolic lymph nodes. These may be reactive. However, if not recently performed on a nonemergent colonoscopy once acute symptoms resolve is recommended. 3. No bowel obstruction.
--- NOTE | 2020-10-25 13:16 | Hospitalist Progress Note ---
Date of Service October 25, 2020 Assessment & Plan (1) Diffuse abdominal pain: (2) Ulcerative colitis: (3) Colitis: (4) Leukocytosis: (5) Diarrhea: Plan: Ulcerative colitis -CT ABD:Moderate wall thickening with hyperemia of the entire colon. The findings represent a moderate to severe pancolitis and favor active ulcerative colitis. An infectious colitis could appear similar. Mild dilatation of the transverse colon without CT evidence for toxic megacolon. Close clinical follow- up is recommended. If progressive abdominal pain, short-term follow-up CT is recommended. A few prominent ileocolic lymph nodes. These may be reactive. However, if not recently performed on a nonemergent colonoscopy once acute symptoms resolve is recommended. No bowel obstruction. -Stool for C diff Negative -IV Solu-Medrol transition to prednisone Continue prednisone taper Continue mesalamine Appreciate GI input Plan for colonoscopy as outpatient DVT Px: Lovenox SQ Admission and Anticipated Discharge Date Admission Date: October 22, 2020 Subjective Patient is seen and examined at bedside Abdominal pain resolved Denies any nausea, vomiting Diarrhea much improved Discussed with gastroenterology today Denies chest pain, dyspnea, dizziness Offers no other complaints Review of Systems Review of Systems: All systems reviewed & are unremarkable except as noted in Subjective Physical Exam Physical Exam: Physical Exam: Vitals signs as noted above General Appearance:Moderately built and nourished, no apparent distress Head: normocephalic, Atraumatic Eyes: normal inspection, EOMI Neck: supple, Trachea midline Respiratory/Chest: Normal breath sounds, CTA, No accessory muscle use Cardiovascular: S1, S2, No murmur Abdomen/GI:Soft, Non tender, Bowel sounds present Extremities/Musculoskeletal:normal inspection, no edema Neurologic/Psych:AAOX3, grossly no focal neurological deficits Skin: normal color, warm Results & Data Results & Data ([facility]) Vital Signs (Past 12 Hours) Vital Signs Temp Pulse Resp BP BP Pulse Ox 10/25/20 11:29 69 117/73 97 10/25/20 09:14 72 124/70 97 10/25/20 08:31 36.2 C L 71 16 143/80 H 94 10/25/20 08:27 36.6 C 61 18 132/76 97 Laboratory Results [facility] 10/25/20 07:04 Sodium 139 Potassium 3.8 Chloride 104 Carbon Dioxide 28 BUN 7 Creatinine 0.63 Glucose 128 H Calcium 8.5 (1) Diarrhea Diarrhea type: unspecified type Qualified Code(s): R19.7 - Diarrhea, unspecified (2) Leukocytosis Leukocytosis type: unspecified Qualified Code(s): D72.829 - Elevated white blood cell count, unspecified
--- NOTE | 2020-10-25 14:33 | Discharge Summary ---
Date of Service October 25, 2020 Admission HPI Per Admitting Provider CHIEF COMPLAINT: Diarrhea and abdominal discomfort. HISTORY OF PRESENT ILLNESS: This is a 55-year-old female with past medical history significant for ulcerative colitis diagnosed 35 years ago. As per patient, initially in the 80s, she took mesalamine, but she has not been taking any medication for a long time and is generally under control. Since last Friday, she is having abdominal cramps, twisting kind of pain and also diarrhea daily few episodes. Once in a while, she has some blood in the stools. She said she never had this kind of pain with her ulcerative colitis in the past and no recent use of any antibiotics. She does not feel like eating anything. She is not eating much and she feels a burning sensation in her esophagus. When she eats any spicy food, feels burning in her esophagus. Currently, feeling somewhat hungry and she wants to have a soup. In the ER, she had a low-grade temperature. Denies any cough. She says she was tested for COVID a couple of times in the recent past and was negative and today also it is negative in the ER. She says she is vaccinated for COVID. Denies any headache. No blurred visions, no double vision, no earache, no runny nose, no sore throat, no difficulty swallowing. No chest pain, no shortness of breath. Not much micturating at home, but currently with fluids, she is micturating fine in the ER. No swelling in the legs, no rash. Currently, resting comfortably and hemodynamically stable. Admission Exam Per Admitting Provider PHYSICAL EXAMINATION: GENERAL: The patient is of moderate build, not in acute distress. VITAL SIGNS: Temperature 37.8, pulse 80, respiratory rate 19, blood pressure 103/67, oxygen 99% on room air. HEENT: Pupils equal, round and reactive to light. Oral mucosa moist. NECK: No JVD, no neck masses. CARDIOVASCULAR: S1 and S2 heard. Regular rate and rhythm. No murmur, no gallop. RESPIRATORY SYSTEM: Normal AP diameter. No accessory muscle use. No wheezing, no crackles. ABDOMEN: Soft, bowel sounds present, nontender, no distention. CENTRAL NERVOUS SYSTEM: Cranial nerves II-XII grossly intact, nonfocal. EXTREMITIES: No edema, no erythema. Principal Diagnosis Ulcerative colitis Discharge Data Allergies Allergy/AdvReac Type Severity Reaction Status Date / Time animal dander Allergy Intermediate SOB WHEEZY Unverified 10/22/20 16:25 Consultations 10/22/20 19:23 ED Decision to Admit Stat 10/23/20 08:00 Consult Gastroenterology Routine Ordered Studies 10/22/20 15:30 CT abd pelvis IV con only Stat Hospital Course (1) Diffuse abdominal pain: (2) Ulcerative colitis: (3) Colitis: (4) Leukocytosis: (5) Diarrhea: Ulcerative colitis -CT ABD:Moderate wall thickening with hyperemia of the entire colon. The findings represent a moderate to severe pancolitis and favor active ulcerative colitis. An infectious colitis could appear similar. Mild dilatation of the transverse colon without CT evidence for toxic megacolon. Close clinical follow- up is recommended. If progressive abdominal pain, short-term follow-up CT is recommended. A few prominent ileocolic lymph nodes. These may be reactive. However, if not recently performed on a nonemergent colonoscopy once acute symp toms resolve is recommended. No bowel obstruction. -Stool for C diff Negative -IV Solu-Medrol transition to prednisone Continue prednisone taper Continue mesalamine Appreciate GI input Plan for colonoscopy as outpatient DVT Px: Lovenox SQ Total Time Total Time Spent Total Time Spent (In Minutes): 39 minutes Discharge Plan Discharge Items Patient Disposition: Home - Self-Care Reason For Visit: DIARRHEA Discharge Diagnosis: Ulcerative colitis Condition on Discharge: Fair Activity: Per Instructions section Exercise/Sports: Gradually increase as tolerated Non-emergency contact: Primary Care Provider and Claims Administrator Call non-emergency contact if: you have any medication questions, your symptoms worsen, your pain is not controlled, your pain is concerning for you and you have a fever Follow-up/Referrals: Krzysztof Alanis CRNP [Nurse Practitioner] - (Date & Time 11/14/2020 8:00 AM Provider EDGAR Alas Department Gastroenterology, [facility], [place] ) Deyanira Dover MD [Primary Care Provider] - (Date & Time 10/30/2020 10:20 AM Provider Linn Huerta MD Department General Internal Medicine [facility] ) Diet: Low Fiber and Low Fat Addtl Attending Provider Instructions: Follow-up with Dr. Deyanira Dover on 10/30/2020 10:20 AM Follow-up with your burlap roll coverer Krzysztof HERNÁNDEZ on 11/14/2020 8:00 AM Complete the prednisone, Mesalamine Course as prescribed Prednisone course Start taking prednisone 40 mg daily for 7 days and then 30 mg daily for 7 days. Further instructions as per your burlap roll coverer. Get colonoscopy in about 1 month as outpatient. -Follow-up with your physician for further management. Seek immediate medical attention if your symptoms reoccur or worsen Please take all medications as instructed on discharge list below. Please call if you have any questions or problems. You can reach a [facility] hospitalist on duty at [facility] 24 hours a day by calling [phone] Pending Studies at Discharge: No Stand-Alone Forms: My [facility] Cardi[facility]abol[facility], Smoking Cessation Medications and DC Order Prescriptions: New prednisone 10 mg tablet 10 mg PO UD Qty: 49 RF: 0 mesalamine [Lialda] 1.2 gram tablet,delayed release (DR/EC) 4.8 g PO DAILY 14 Days Qty: 56 RF: 0 Continued ondansetron 4 mg tablet,disintegrating 4 mg PO Q8H PRN (Reason: Nausea) RF: 0 Discharge Orders: Discharge Order (Routine); Ordered 10/25/20 Ordered By: Chon Patel/Other Patient Handouts: Managing Ulcerative Colitis: Medicines Admission Data Admit Date/Time: 10/22/20 20:28 Attending Provider: Chon Montoya Admit Provider: Erick Clemente Primary Care Provider: Deyanira Dover Other Providers: Erick Clemente ; Иван Ornelas Other Interventions: Discharge Summary Assessment (RN) Last Done: 10/25/20 14:24
== END 2020-10-25 14:45 | disposition home or self-care (01) | DRG 387 ==
LOC: ED 14:00 → 3W 20:28 → INTOOBSV 20:28 → SUATTDRO 20:28 → 3W 22:07
DX: Z82.49 Family history of ischemic heart disease and other diseases of the circulatory system; Z98.890 Other specified postprocedural states; Z91.09 Other allergy status, other than to drugs and biological substances; Z20.822 Contact with and (suspected) exposure to COVID-19; R11.0 Nausea; Z80.0 Family history of malignant neoplasm of digestive organs; E87.6 Hypokalemia; K51.00 Ulcerative (chronic) pancolitis without complications